=== PATIENT | male | born 1995 ===

== ENCOUNTER 2023-11-07 22:50 | Emergency (ER) | payer MEDICARE, SELFPAY ==
[2023-11-07] VITALS (12 sets, daily range): BP systolic 100–129; BP diastolic 67–77; PULSE 45–90; RESP 12–20; O2SAT 92–100
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
[2023-11-07 23:04] LABS: Abs Immature Grans 0.03 10^3/uL (0.0-0.06); Absolute Basophil Count 0.01 10^3/uL (0.0-0.2); Absolute Eosinophil Count 0.02 10^3/uL (0.0-0.7); Absolute Lymphocyte Count 1.92 10^3/uL (1.2-3.4); Absolute Monocyte Count 0.35 10^3/uL (0.1-0.8); Basophils % 0.1 %; Eosinophils % 0.3 %; HCT 33.2 % (40.0-50.0); HGB 10.4 g/dL (13.5-17.5); Immature Grans % 0.4 %; Lymphocytes % 27.7 %; MCH 20.2 pg (27.0-33.0); MCHC 31.3 % (32.0-36.0); MCV 65 fL (80-95); Monocytes % 5.1 %; Neutrophils % 66.4 %; RBC 5.14 10^6/uL (4.36-5.78); RDW-SD 34.1 fL; WBC 6.93 10^3/uL (4.4-10.8)
[2023-11-07] MEDS: ceFAZolin 2,000 MG in Normal Saline 100 ML 200 MG IVPB (23:04)
[2023-11-07] MEDS: Lactated Ringers 1,000 ML 1000 ML IV (23:04)
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
[2023-11-07 23:18] LABS: INR 1.2 (0.9-1.1); PTT Activated 21.4 sec (23.6-32.8)
[2023-11-07 23:22] LABS: ETHANOL BLOOD < 3.0 mg/dL (<10)
[2023-11-07 23:23] LABS: ALT 423 U/L (16-63); AST 343 U/L (15-37); Albumin 4.4 g/dL (3.4-5.0); Alkaline Phosphatase 52 U/L (46-116); Anion Gap 13.2 mmol/L (3-11); BUN 21 mg/dL (7-18); Bilirubin, Total 0.69 mg/dL (0.2-1.0); CO2 24.8 mmol/L (21.0-32.0); CREATININE 1.1 mg/dL (0.70-1.30); Calcium 8.7 mg/dL (8.5-10.1); Chloride 102 mmol/L (98-107); Estimated GFR 92.61 (mL/min/1.73m2); Glucose 189 mg/dL (74-106); Lipase 23 U/L (16-77); Magnesium 1.8 mg/dL (1.8-2.4); Potassium 3.4 mmol/L (3.5-5.1); Sodium 140 mmol/L (136-145); Total Protein 7.3 g/dL (6.4-8.2)
[2023-11-07 23:30] LABS: Platelet Count 274 10^3/uL (130-400)
[2023-11-07 23:31] LABS: Anisocytosis 1+; Diff Comment RBC Morph Reviewed; Microcytosis 1+
[2023-11-07] MEDS: fentaNYL 100 MCG/2 ML VIAL (23:35)
[2023-11-07] MEDS: Ondansetron 4 MG/2 ML VIAL (23:38)
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
[2023-11-07] MEDS: Omnipaque 350 MG/ML 100 ML BTL IJ (23:47)
[2023-11-07] MEDS: Normal Saline - Diluent 50 ML VIAL IJ (23:48)
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
[2023-11-07] MEDS: Tetanus & Diphtheria Tox,ADULT 0.5 ML VIAL IM (23:55)
[2023-11-08] VITALS (12 sets, daily range): BP systolic 109–153; BP diastolic 64–84; PULSE 48–84; RESP 10–20; TEMP 36.6; O2SAT 98–100
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
[2023-11-08 00:21] LABS: Bilirubin Negative (Negative); Blood Moderate (Negative); Clarity Sl Cloudy (Clear); Glucose Negative (Negative); Ketones 15 mg/dL (Negative); Leukocyte Esterase Negative (Negative); Nitrite Negative (Negative); Specific Gravity 1.015 (1.005-1.025); Urobilinogen 0.2 mg/dL (Up to 0.2); pH 6.5 (5-8)
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
[2023-11-08 00:32] LABS: Bacteria Negative HPF (Negative); C & S Indicated? No; Casts Negative LPF (Negative); Crystals Negative HPF (Negative); Epithelial Cells Negative HPF (Negative); Mucus Negative (Negative); RBC 20-50 HPF (0-2); WBC Negative HPF (0-5)
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
[2023-11-08 00:34] LABS: *AMPHETAMINES SCREEN URINE Negative (Negative); *BARBITURATES SCREEN URINE Negative (Negative); *BENZODIAZEPINES SCREEN URINE Negative (Negative); Cannabinoids THC Positive (Negative); Cocaine Screen,Urine Negative (Negative); METHADONE URINE SCREEN Negative (Negative); OPIATES URINE SCREEN Positive (Negative)
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
[2023-11-08 00:37] LABS: Tricyclic Antidepressants Negative (Negative)
--- NOTE | 2023-11-08 01:07 | NUR.NOTE ---
Attempted to contact [facility] to give report several times, call would ring several times then go to a busy signal, after finally getting ahold of someone I was placed on hold for 20 minutes with no one picking up to take report, attempted for over 30 minutes to make contact with [facility] unsuccessfully, MIRIAM
[2023-11-08] MEDS: MORPHine 4 MG/ML SYR (01:21)
== END 2023-11-08 01:00 | disposition short-term general hospital (02) ==
PROVIDERS: Emergency Medicine; Emergency Provider Emergency Medicine
DX: S21.341A Puncture wound with foreign body of right front wall of thorax with penetration into thoracic cavity, initial encounter (principal); S51.841A Puncture wound with foreign body of right forearm, initial encounter; S81.041A Puncture wound with foreign body, right knee, initial encounter; S36.113A Laceration of liver, unspecified degree, initial encounter; S72.401A Unspecified fracture of lower end of right femur, initial encounter for closed fracture; Z18.10 Retained metal fragments, unspecified; Y35.003A Legal intervention involving unspecified firearm discharge, suspect injured, initial encounter; Y93.02 Activity, running; Y92.89 Other specified places as the place of occurrence of the external cause; Z23 Encounter for immunization
CPT/HCPCS: 32551; 36415; 36430; 71045; 73562; 74177; 80053; 80307; 83690; 86850; 86900; 86901; 86920; 90471; 90714; 96361; 96365; 99291; 71260; 73060; 80320; 81003; 81015; 83735; 85025; 85610; 85730; J0690; J2270; J2405; J3010; J3490; P9016